=== PATIENT | female | born 1945 | race Caucasian/White ===

== ENCOUNTER 2017-11-15 07:30 | Day surgery (SDC) | payer MEDICARE, OTHER ==
[~2017-11-15] VITALS: Ht 167.6 cm; Wt 79.1 kg
[~2017-11-15 07:30] MED LIST: SODIUM CHLORIDE 0.9% 0 ML IV ONE; SODIUM CHLORIDE 0.9% 1,000 ML IV ONE
[2017-11-15] MEDS ORDERED: MIDAZOLAM HCL 2 MG/2 ML VIAL ONE (07:37)
[2017-11-15] MEDS ORDERED: FentaNYL CITRATE-PF 100 MCG/2 ML VIAL ONE (07:37)
[2017-11-15] MEDS ORDERED: RINGERS SOLUTION,LACTATED 0 ML IV ONE (08:10)
[2017-11-15] MEDS ORDERED: PHENYLEPHRINE HCL 2.5% 2 ML OPHTHALMIC SOLUTION ONE (08:11)
[2017-11-15] MEDS ORDERED: MOXIFLOXACIN HCL 0.5% 3 ML OPHTHALMIC SOLUTION ONE (08:11)
[2017-11-15] MEDS ORDERED: TROPICAMIDE 1% 2 ML OPHTHALMIC SOLUTION ONE (08:11)
[2017-11-15] MEDS ORDERED: DICLOFENAC SODIUM 0.1% 2.5 ML OPHTHALMIC SOLUTION ONE (08:11)
[2017-11-15] MEDS ORDERED: SODIUM CHLORIDE 0.9% 1,000 ML IV ONE ×2 (08:14→09:06)
[2017-11-15] MEDS ORDERED: RIVA15T PO (08:35)
[2017-11-15] MEDS ORDERED: VITAD1000 PO (08:35)
[2017-11-15] MEDS ORDERED: METO-558 PO (08:35)
[2017-11-15] MEDS ORDERED: CALC-1038 PO (08:35)
[2017-11-15] MEDS ORDERED: LOSA50TA37 PO (08:38)
[2017-11-15] MEDS ORDERED: METF850T2 PO (08:38)
[2017-11-15] MEDS ORDERED: POTA25TA7 PO (08:38)
[2017-11-15] MEDS ORDERED: ATOR40TA28 PO (08:38)
[2017-11-15] MEDS ORDERED: FURO20 PO (08:38)
[2017-11-15] MEDS ORDERED: MethylPREDNISolone SOD SUCC 125 MG/2 ML VIAL IVP ONE (09:30)
[2017-11-15] MEDS ORDERED: ENALAPRILAT DIHYDRATE 1.25 MG/ML VIAL IVP ONE (10:15)
[2017-11-15] MEDS ORDERED: MethylPREDNISolone SOD SUCC 125 MG/2 ML VIAL ONE (10:20)
[2017-11-15] MEDS ORDERED: LOSARTAN POTASSIUM 50 MG TABLET PO ONE (11:00)
[2017-11-15] MEDS ORDERED: METOPROLOL SUCCINATE 100 MG ER TABLET PO ONE (11:00)
[2017-11-15] MEDS ORDERED: LIDOCAINE HCL 2% 5 ML JELLY TP ONE (12:00)
[2017-11-15] MEDS ORDERED: BENZOCAINE 20% 50 MCG/SPRAY 57 GM TP ONE (12:00)
[2017-11-15] MEDS ORDERED: LIDOCAINE HCL 4% 50 ML SOLUTION TP ONE (12:00)
[2017-11-15] MEDS ORDERED: ALBUTEROL SULFATE 2.5 MG/0.5 ML NEB SOLUTION NEB ONE (12:00)
[2017-11-15] MEDS ORDERED: OXYGEN THERAPY IH SCH (20:00)
== END 2017-11-15 11:50 | disposition home or self-care (01) ==
LOC: SURGERY 07:30
PROVIDERS: ATTEND Internal Medicine Critical Care Medicine
DX: J38.4 Edema of larynx (principal); B37.0 Candidal stomatitis; J84.111 Idiopathic interstitial pneumonia, not otherwise specified; I48.91 Unspecified atrial fibrillation; I10 Essential (primary) hypertension; E11.9 Type 2 diabetes mellitus without complications; M19.90 Unspecified osteoarthritis, unspecified site; E78.00 Pure hypercholesterolemia, unspecified; Z87.01 Personal history of pneumonia (recurrent); Z90.49 Acquired absence of other specified parts of digestive tract; Z96.653 Presence of artificial knee joint, bilateral; Z98.49 Cataract extraction status, unspecified eye; Z79.84 Long term (current) use of oral hypoglycemic drugs; Z79.899 Other long term (current) drug therapy
CPT/HCPCS: 31623; 31624; 71010; 87015 ×2; 87070; 87101; 87205; 87220; 87252; 88108; 88312; J2250; J2930; J3010; J3490; J7030; J7120